=== PATIENT | male | born 1960 | race Caucasian/White ===

== ENCOUNTER 2016-05-15 05:11 | Day surgery (SDC) | payer OTHER ==
[~2016-05-15] VITALS: Ht 175.3 cm; Wt 96.9 kg
--- NOTE | ~2016-05-15 | O ---
[facility] [address] OPERATIVE REPORT Name: ACE CHOWDARY Room #: DEP [facility]..#: [id number] Admission: 05/15/16 Attend Phys: Augustus Barnett MD Discharge: 05/15/16 Date of : 58 Report #: [id number] THIS REPORT FOR: //name// CC: Giacomo Barnett DATE OF SERVICE: 05/15/2016 PATIENT OF: Augustus Barnett M.D. and Giacomo Calvin M.D. PREOPERATIVE DIAGNOSIS: Incarcerated umbilical hernia. POSTOPERATIVE DIAGNOSIS: Incarcerated umbilical hernia. PROCEDURE: Repair of an incarcerated umbilical hernia. SURGEON: Augustus Barnett M.D. ANESTHESIA: Local IV sedation. DESCRIPTION OF PROCEDURE: The patient was brought to the operating room and placed on the operative table in the supine position. Sequential compression devices were in place for DVT prophylaxis. There was no indication for preoperative antibiotics. The patient underwent IV sedation and the abdomen was then prepped and draped in a sterile fashion. Skin and subcutaneous tissue around the umbilicus was then infiltrated with 0.5% Marcaine and 1% Xylocaine in a 1:1 mixture. A transverse infraumbilical skin incision was then performed using #15 scalpel blade. Hemostasis obtained using electrocautery. Dissection was carried down to this large incarcerated umbilical hernia sac, which was dissected free. There was incarcerated preperitoneal fat and omentum, which was dissected free and reduced back into the abdomen. The hernia fascial defect was then closed using interrupted [id number] #1 Prolene sutures. The umbilicus was then tacked to the fascia and the deep and superficial subcutaneous tissue was then reapproximated using simple interrupted 2-0 chromic sutures and the skin then closed with a running 4-0 subcuticular Vicryl stitch. The wound was then dressed with Dermabond, Telfa, 4 x 4s gauze, sponge and tape. The patient was then taken to the recovery room awake, alert and in good condition. Estimated blood loss was less than 5 mL and the patient tolerated the procedure well. All sponge, lap and needle counts were correct times 2. <ELECTRONICALLY SIGNED> By: Augustus Barnett MD 05/15/16 1531 [id number] Augustus Barnett MD /nt
--- NOTE | ~2016-05-15 | EKG ---
[address] [address] ELECTROCARDIOGRAM REPORT Name: ACE CHOWDARY Room #: 150-1 [facility].#: [id number] Admission: 05/15/16 Attend Phys: Augustus Barnett MD Discharge: Date of : 58 Report #: [id number] THIS REPORT FOR: //name// [facility] Test Date: 2016-05-15 Test Time: 06:46:44 Pat Name: ACE CHOWDARY Department: Room: [facility] Gender: M Procedures Nurse: JASMINA : 1960 Requested By: Augustus Barnett Order Number: [id number] MD: Johny Barker Measurements Intervals [place] Rate: 73 P: 43 CA: 165 QRS: 40 QRSD: 100 T: 3 QT: 402 QTc: 443 Interpretive Statements Sinus rhythm No significant abnormality No previous ECG available for comparison Electronically Signed On 05-15-2016 7:54:02 CDT by Johny Barker [email or web address] <ELECTRONICALLY SIGNED> By: Johny Barker MD, [facility] 05/15/16 0754 [phone] Johny Barker MD, FACC /EPI
[~2016-05-15 05:11] MED LIST: ACYCLOVIR 400400 M1 OR; ALLOPURINOL 30300 M1 OR; AMLODIPINE BESYL5 MG PO; ASPIR 8181 M1 PO; ASPIRIN325 PO; B-100 COMPLEX1 EAC1 PO; CLEOCIN HCL150 MG PO; COQ10 SG 100 S1 EACH PO; CRESTOR PO; FISH OIL 1,0001 EAC5 PO; LEVAQUIN 250 M250 MG OR; LEVOXYL175 MCG PO; LEVOXYL200 MCG PO; LOVASTAT40 PO; MELOXICAM15 MG PO; MICARDIS HCT 81 EAC1 PO; NEURONTIN 300300 M1 PO; NIASPAN ER 101000 M1 PO; NORCO 10-325 T1 EACH PO; NORCO PO; OMEGA-3 KRILL1 EACH PO; PRILOSEC 20 MG20 MG PO; SULFAMETH; VITAMIN B COMP1 EACH PO; VITAMIN D3400 UNI2 PO; VITAMIN D400 UNI1 PO; VITAMINC500 PO; VITCB500GO PO
[2016-05-15 07:30] VITALS: BP 168/100
== END 2016-05-15 10:12 | disposition home or self-care (01) ==
LOC: TBA 05:11 → OR 05:11
DX: K42.0 Umbilical hernia with obstruction, without gangrene (principal); I10 Essential (primary) hypertension; E05.00 Thyrotoxicosis with diffuse goiter without thyrotoxic crisis or storm; Z98.890 Other specified postprocedural states; Z87.891 Personal history of nicotine dependence; Z85.6 Personal history of leukemia
CPT/HCPCS: 50010; 50101; 50386; 50417; 54118; 56524; 56525; 56526; 62110; 62850; 70005

== ENCOUNTER 2016-06-06 05:39 | Day surgery (SDC) | payer OTHER ==
[~2016-06-06] VITALS: Ht 175.3 cm; Wt 94.8 kg
--- NOTE | ~2016-06-06 | O ---
[facility] [place] [address] OPERATIVE REPORT Name: ACE CHOWDARY Room #: 150-5 [facility] M.R.#: [id number] Admission: 06/06/16 Attend Phys: Augustus Barnett MD Discharge: Date of : 58 Report #: [id number] THIS REPORT FOR: //name// CC: Giacomo Barnett DATE OF SERVICE: 06/06/[address] Augustus Barnett, Dr. Giacomo Calvin. PREOPERATIVE DIAGNOSIS: A 10.5 x 8.5 cm subcutaneous mass on the left lower back. POSTOPERATIVE DIAGNOSIS: A 10.5 x 8.5 cm subcutaneous mass on the left lower back. PROCEDURE: Excision of deep complicated 10.5 cm x 8.5 cm subfascial subcutaneous mass with complex layered closure. SURGEON: Augustus Barnett M.D. ANESTHESIA: Local with IV sedation. DESCRIPTION OF PROCEDURE: The patient was brought to the operating room and placed on operative table in the right lateral decubitus position. The left lower back mass was then prepped and draped in a sterile fashion. Skin and subcutaneous tissue was then infiltrated with 0.5% Marcaine and 1% Xylocaine in a 1:1 mixture. A transverse skin incision was performed over this mass using a #10 scalpel blade. Hemostasis obtained using electrocautery. Dissection was carried down through subcutaneous tissue to this mass which was completely excised and sent to pathology. This dissection was carried down through the subcutaneous tissue and the fascia. Meticulous hemostasis was obtained there using the electrocautery. The deep and superficial subcutaneous tissue was then reapproximated using simple interrupted 2-0 chromic sutures and the skin then closed with a running 4-0 subcuticular Vicryl stitch. The wound was then dressed with Mastisol, half inch Steri-Strips cut in half, Telfa, 4 x 4 gauze, sponge and tape. The patient was then taken to the recovery room awake, alert and in good condition. Estimated blood loss was less than 5 mL and the patient tolerated procedure well. All sponge, lap and instrument counts correct times 2. By: [id number] Augustus Barnett MD /nt
--- NOTE | ~2016-06-06 | S ---
[facility] [place] [address] SURGICAL PATH RPT PROCEDURE Name: ACE CHOWDARY Room #: [place] [facility] [place].#: [id number] Admission: 06/06/16 Date of : 58 Discharge: 06/06/16 Report #: [id number] Path Case #: [id number] PATHOLOGY REPORT COLLECTION DATE: 06/06/2016 RECEIVED DATE: 06/06/2016 SUBMITTING PHYS: Dr. Augustus Barnett OTHER PHYS: Dr. Giacomo Calvin SPECIMEN(S) RECEIVED: A.Lipoma from lower back * * * * * * * * * * * * FINAL DIAGNOSIS: Fibroadipose tissue, "lipoma from lower back," excisional biopsy: - Mature lobulated fibroadipose tissue consistent with a lipoma. ([facility]:; d/t: 06/07/16) PATHOLOGIST: Rigoberto Damian M.D. REPORT ELECTRONICALLY SIGNED BY: Rigoberto Damian M.D. DATE/TIME: 06/07/2016 14:52 * * * * * * * * * * * * GROSS PATHOLOGY: Received in formalin labeled "Ace Chowdary and lower back lipoma," is a segment of lobulated fibroadipose tissue measuring 8.3 x 6.8 x 2.5 cm in maximum dimensions. Sectioning reveals homogeneous, bright yellow cut surfaces. Acid Dipper tissue is submitted in cassette A1. (TTL; 06/06/2016) CLINICAL HISTORY: Lipoma lower back INITIAL CPT CODE(S): A; 25531 Professional services performed by [facility] at [facility] [address], [place] [address] Technical services performed by [facility] at [address] [place] [id number]. [facility] [address] [place] [address] SURGICAL PATH RPT PROCEDURE Name: ACE CHOWDARY Room #: DE[place] [facility] Daniel#: [id number] Admission: 06/06/16 Date of : 58 Discharge: 06/06/16 Report #: [id number] Path Case #: [id number] [address] PHONE: [phone] DIRECTOR: Olu Brumfield M.D. * * * END OF REPORT * * *
[2016-06-06 13:05] VITALS: BP 152/94
== END 2016-06-06 15:38 | disposition home or self-care (01) ==
LOC: OR 05:39 → TBA 05:40 → OR 10:35
DX: D17.1 Benign lipomatous neoplasm of skin and subcutaneous tissue of trunk (principal); I10 Essential (primary) hypertension; C91.10 Chronic lymphocytic leukemia of B-cell type not having achieved remission; E05.00 Thyrotoxicosis with diffuse goiter without thyrotoxic crisis or storm; Z98.890 Other specified postprocedural states; Z87.891 Personal history of nicotine dependence
CPT/HCPCS: 50010; 50101; 50386; 50403; 56524; 56528; 62110; 62850; 70005